=== PATIENT | female | born 1995 | race Caucasian/White ===

== ENCOUNTER 2018-04-05 14:46 | Outpatient (RCR) | payer OTHER | END 2018-04-30 | LOC: M ST 14:46 | DX: J38.3 Other diseases of vocal cords (principal) | CPT/HCPCS: 92507 ==

== ENCOUNTER 2018-05-03 09:01 | Outpatient (RCR) | payer OTHER | END 2018-05-31 | LOC: M ST 05-10 07:30 | DX: J38.3 Other diseases of vocal cords (principal) | CPT/HCPCS: 92507 ==

== ENCOUNTER 2018-06-07 08:40 | Emergency (ER) | payer OTHER ==
[2018-06-07] MEDS: KETOROLAC 30 MG/ML VIAL (J1885) IV (09:42)
[2018-06-07 09:47] LABS: KETONE, URINE AUTO RFX NEGATIVE (NEGATIVE); NITRITE, URINE AUTO RFX NEGATIVE (NEGATIVE); RBC, URINE AUTO RFX 15 /HPF (0-3); SPECIFIC GRAVITY UR AUTO RFX 1.003 (1.002-1.035); SQUAM EPITHELIAL CELL UR AURFX 1 /HPF (0-6)
[2018-06-07 09:48] LABS: BASO % 0.3 % (0.0-1.0); EOS # 0.1 10^3/uL (0.0-0.50); EOS % 0.6 % (0.0-3.0); HEMATOCRIT 40.2 % (36.0-47.0); HEMOGLOBIN 13.7 g/dl (12.0-15.5); IMMATURE GRANULOCYTE % 0.4 % (0-3.0); LYMPH # 1.6 10^3/uL (1.5-6.5); LYMPH % 13.8 % (24.0-44.0); MEAN CORPUSCULAR HEMOGLOBIN 29.2 pg (27.0-33.0); MEAN CORPUSCULAR HGB CONC 34.1 g/dl (32.0-36.5); MEAN CORPUSCULAR VOLUME 85.7 fl (80.0-96.0); MONO # 0.7 10^3/uL (0.0-0.8); NEUTROPHILS % 78.9 % (36.0-66.0); PLATELET COUNT, AUTOMATED 253 10^3/uL (150-450); RED BLOOD COUNT 4.69 10^6/uL (4.00-5.40); RED CELL DISTRIBUTION WIDTH 12.4 % (11.5-14.5); WHITE BLOOD COUNT 11.4 10^3/uL (4.0-10.0)
[2018-06-07 10:12] LABS: ALBUMIN/GLOBULIN RATIO 1.25 (1.00-1.93); ALKALINE PHOSPHATASE 94 U/L (45-117); ALT/SGPT 28 U/L (12-78); ANION GAP 7 MEQ/L (8-16); AST/SGOT 20 U/L (7-37); BILIRUBIN,DIRECT < 0.1 MG/DL (0.0-0.2); BILIRUBIN,TOTAL 0.3 MG/DL (0.2-1.0); BLOOD UREA NITROGEN 7 MG/DL (7-18); CALCIUM LEVEL 9.5 MG/DL (8.5-10.1); CARBON DIOXIDE LEVEL 28 MEQ/L (21-32); CHLORIDE LEVEL 103 MEQ/L (98-107); CREATININE FOR GFR 0.64 MG/DL (0.55-1.30); GLOMERULAR FILTRATION RATE > 60.0 (>60); GLUCOSE, FASTING 89 MG/DL (70-100); SODIUM LEVEL 138 MEQ/L (136-145); TOTAL PROTEIN 7.2 GM/DL (6.4-8.2)
[2018-06-07 10:18] LABS: LEUKOCYTE ESTERASE UR AUTO RFX 3+ (NEGATIVE); WBC, URINE AUTO RFX 149 /HPF (0-3)
== END 2018-06-07 11:26 | disposition home or self-care (01) ==
LOC: M ED 08:40
DX: N39.0 Urinary tract infection, site not specified (principal)
CPT/HCPCS: J1885

== ENCOUNTER 2018-07-04 15:14 | Emergency (ER) | payer OTHER ==
[2018-07-04 15:38] LABS: KETONE, URINE AUTO RFX NEGATIVE (NEGATIVE); LEUKOCYTE ESTERASE UR AUTO RFX NEGATIVE (NEGATIVE); NITRITE, URINE AUTO RFX NEGATIVE (NEGATIVE); RBC, URINE AUTO RFX 0 /HPF (0-3); SPECIFIC GRAVITY UR AUTO RFX 1.004 (1.002-1.035); SQUAM EPITHELIAL CELL UR AURFX 1 /HPF (0-6); WBC, URINE AUTO RFX 1 /HPF (0-3)
== END 2018-07-04 16:10 | disposition left against medical advice (07) ==
LOC: M ED 15:14
DX: R10.2 Pelvic and perineal pain (principal); Z53.21 Procedure and treatment not carried out due to patient leaving prior to being seen by health care provider
CPT/HCPCS: 81001

== ENCOUNTER 2018-07-05 21:37 | Emergency (ER) | payer OTHER ==
[2018-07-05 22:07] LABS: KETONE, URINE AUTO RFX NEGATIVE (NEGATIVE); LEUKOCYTE ESTERASE UR AUTO RFX NEGATIVE (NEGATIVE); NITRITE, URINE AUTO RFX NEGATIVE (NEGATIVE); RBC, URINE AUTO RFX 0 /HPF (0-3); SPECIFIC GRAVITY UR AUTO RFX 1.014 (1.002-1.035); SQUAM EPITHELIAL CELL UR AURFX 3 /HPF (0-6); WBC, URINE AUTO RFX 0 /HPF (0-3)
[2018-07-05] MEDS: AZITHROMYCIN 250 MG TAB PO (22:46)
[2018-07-05] MEDS: cefTRIAXone SOD 250 MG VIAL (J0696) IM (22:46)
[2018-07-06 00:05] LABS: CHLAMYDIA DNA AMPLIFICATION NEGATIVE (NEGATIVE); GC DNA AMPLIFICATION NEGATIVE (NEGATIVE)
== END 2018-07-05 23:01 | disposition home or self-care (01) ==
LOC: M ED 21:37
DX: Z20.2 Contact with and (suspected) exposure to infections with a predominantly sexual mode of transmission (principal)
CPT/HCPCS: J0696

== ENCOUNTER 2018-07-14 10:03 | Outpatient (RCR) | payer OTHER ==
[~2018-07-14 10:03] MED LIST: BACT800T5 PO; KETO10TAB PO
== END 2018-07-31 ==
LOC: M ST 10:03
PROVIDERS: ATTEND Physician Assistant Medical
DX: J38.3 Other diseases of vocal cords (principal)
CPT/HCPCS: 92507; 92524; G9171; G9172

== ENCOUNTER 2018-08-22 16:51 | Emergency (ER) | payer OTHER ==
[~2018-08-22] VITALS: Ht 154.9 cm; Wt 72.3 kg
[2018-08-22 17:14] LABS: APPEARANCE, URINE CLEAR (CLEAR); BACTERIA, URINE AUTO NEGATIVE (NEGATIVE); BILIRUBIN, URINE AUTO NEGATIVE (NEGATIVE); BLOOD, URINE BLOOD 1+ (NEGATIVE); COLOR, URINE STRAW (YELLOW); GLUCOSE, URINE (UA) AUTO NEGATIVE (NEGATIVE); KETONE, URINE AUTO NEGATIVE (NEGATIVE); LEUKOCYTE ESTERASE, URINE AUTO NEGATIVE (NEGATIVE); NITRITE, URINE AUTO NEGATIVE (NEGATIVE); PROTEIN, URINE AUTO NEGATIVE (NEGATIVE); RBC, URINE AUTO 1 /HPF (0-3); SPECIFIC GRAVITY URINE AUTO 1.004 (1.002-1.035); SQUAMOUS EPITHELIAL CELL UR AU 1 /HPF (0-6); UROBILINOGEN, URINE AUTO 0.2 mg/dL (0.0-2.0); WBC, URINE AUTO 2 /HPF (0-3)
[2018-08-22] MEDS ORDERED: NS 1,000 ML IV ONE (20:15)
[2018-08-22 21:09] LABS: BASO # 0.1 10^3/uL (0.0-0.2); BASO % 0.3 % (0.0-1.0); EOS # 0.1 10^3/uL (0.0-0.50); EOS % 0.4 % (0.0-3.0); HEMATOCRIT 38.3 % (36.0-47.0); HEMOGLOBIN 13.1 g/dl (12.0-15.5); LYMPH # 3.7 10^3/uL (1.5-6.5); LYMPH % 25.6 % (24.0-44.0); MEAN CORPUSCULAR HEMOGLOBIN 29.7 pg (27.0-33.0); MEAN CORPUSCULAR HGB CONC 34.2 g/dl (32.0-36.5); MEAN CORPUSCULAR VOLUME 86.8 fl (80.0-96.0); MONO # 0.9 10^3/uL (0.0-0.8); MONO % 6.4 % (0.0-5.0); NEUTROPHILS # 9.6 10^3/uL (1.8-7.7); PLATELET COUNT, AUTOMATED 289 10^3/uL (150-450); RED BLOOD COUNT 4.41 10^6/uL (4.00-5.40); WHITE BLOOD COUNT 14.3 10^3/uL (4.0-10.0)
--- NOTE | 2018-08-22 21:57 | REPVR ---
EXAM: US First Trimester, Transabdominal EXAM DATE/TIME: 08/22/2018 9:16 PM CLINICAL HISTORY: 22 years old, female; Signs and symptoms; Lmp or gestational age (in weeks): 5w4d; Antepartum complications; Bleeding; ; Additional info: Vaginal bleeding TECHNIQUE: Real-time transabdominal obstetrical ultrasound of the maternal pelvis and a first trimester , less than 14 weeks 0 days, with image documentation. COMPARISON: No relevant prior studies available. FINDINGS: GESTATION: Gestation: Intrauterine gestational sac with a yolk sac. No pole is seen at this time. BIOMETRY: Estimated gestational age: 5 weeks 4 days by sac size Mean sac diameter: Mean sac size is 8 mm suggesting an age of 5 weeks 4 days. The EDC is 04/20/2019. MATERNAL: Uterus: The uterus measures 7.8 cm in its cephalocaudad dimension and 3.9 x 4.4 cm in its AP and lateral dimensions transabdominal. The uterus measures 9.6 cm in its cephalocaudad dimension and 4.2 x 5.4 cm in its AP and lateral dimensions transvaginal. Cervix: Unremarkable. Right adnexa: The right ovary measures 3.1 x 2.2 x 1.9 cm and demonstrates blood flow. Left adnexa: The left ovary measures 2.1 x 3.5 x 2.1 cm and demonstrates blood flow. Intraperitoneal: No intraperitoneal free fluid. IMPRESSION: 1. Early gestational sac within the uterus with yolk sac but no pole at this time. Sac size suggests an age of 5 weeks 4 days. 2. Otherwise negative pelvic sonogram. Electronically signed by: Grabiel Hoff On 08/22/2018 21:56:34 PM
[2018-08-22 22:33] VITALS: BP 128/77
== END 2018-08-22 22:34 | disposition home or self-care (01) ==
LOC: M ED 16:51
DX: O26.851 Spotting complicating pregnancy, first trimester (principal); O26.891 Other specified pregnancy related conditions, first trimester; M54.5 Low back pain; Z3A.01 Less than 8 weeks gestation of pregnancy

== ENCOUNTER 2018-08-23 14:13 | Outpatient (RCR) | payer OTHER | END 2018-08-31 | LOC: M ST 14:13 | PROVIDERS: ATTEND Physician Assistant Medical | DX: J38.3 Other diseases of vocal cords (principal) ==

== ENCOUNTER → 2018-08-25 | Outpatient (CLI) | payer OTHER ==
--- NOTE | 2018-08-25 07:53 | REP ---
Clinical: Dating and viability. Technique: Transabdominal and transvaginal first trimester obstetrical ultrasound with color Doppler evaluation. Findings: Single live early intrauterine is appreciated. Gestational sac with yolk sac and pole identified. Piedra-rump length of 2 mm corresponds to 5 weeks 5 days gestational age with estimated date of delivery 04/22/2019 . heart rate equals 80 beats per minute. No gross abnormalities are identified. Maternal ovaries are normal in appearance without torsion and a hemorrhagic left ovarian cyst likely represents corpus luteum. Right ovary measures 2.5 x 2.4 x 2.4 cm; RI 0.60. Left ovary measures 3.0 x 2.6 x 2.2 cm; RI 0.49. Impression: Single live early intrauterine at 5 weeks 5 days gestational age. heart rate is bradycardic and may warrant followup to ensure viability. Complete anatomical assessment should be performed and 19-20 weeks. Electronically Signed by Balbir Auguste MD 08/25/2018 07:46 A
== END ==
LOC: M RAD 07:01
PROVIDERS: ATTEND Obstetrics & Gynecology
DX: Z36.89 Encounter for other specified antenatal screening (principal); Z3A.01 Less than 8 weeks gestation of pregnancy

== ENCOUNTER → 2018-08-29 | Outpatient (CLI) | payer OTHER ==
--- NOTE | 2018-08-29 11:46 | REP ---
FIRST TRIMESTER ULTRASOUND: Real-time sonographic evaluation of the gravid uterus performed utilizing transabdominal and endovaginal technique. There is a single living intrauterine gestation. The gestational age is 6 weeks 1 day based on the crown-rump length of 5 mm, EDC 04/23/2019. The heart rate is 124 beats per minute. There is no subchorionic hemorrhage. Complex left ovarian cystic structure probably represents hemorrhagic corpus luteum. This measured about 2.2 cm in maximum diameter. There is no evidence of ovarian torsion bilaterally with duplex Doppler evaluation. Electronically Signed by Dipesh Stringer MD 08/29/2018 12:45 P
== END ==
LOC: M RAD 10:48
PROVIDERS: ATTEND Obstetrics & Gynecology
DX: Z36.89 Encounter for other specified antenatal screening (principal); Z3A.01 Less than 8 weeks gestation of pregnancy

== ENCOUNTER 2019-04-30 10:43 | Inpatient (IN) | payer OTHER ==
[~2019-04-30] VITALS: Ht 154.9 cm; Wt 98.3 kg
[2019-04-30] VITALS (9 sets, daily range): BP systolic 120–178; BP diastolic 77–97
[2019-04-30] MEDS ORDERED: LACTATED RINGER'S 1000 ML IV STA (10:58)
--- NOTE | 2019-04-30 11:35 | HPEPDOC ---
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 She was seen in clinic for NST and was noted to have initially minimal variability (likely sleep cycle), but resolved. However, BPs in clinic were mild range x2 (134/91, 136/96), which are new for her. She denies headache, vision changes, RUQ pain, regular contractions, vaginal bleeding, or LOF. Reports movement. 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: Herpes simplex virus(HSV) (Reports h/o Lab - Never had Outbreak - positive Serology), History of STD (2018 - Chlamydia) Past Medical History Medical History Obesity Surgical History: Denies/None Family History Significant Family History: No pertinent family hx Social History Marital Status: Family situation: Spouse/partner home Psychosocial History: No pertinent psych hx * Smoker: non-smoker Alcohol: Denies Drugs: denies Imunizations Tdap status: current Influenza Status: needs Allergies Coded Allergies: No Known Allergies (Unverified , 06/07/18) Medications Scheduled Valacyclovir HCl (Valtrex) 500 Mg Tablet, 1 TAB PO DAILY Physical Examination Physical Examination GENERAL: Alert and oriented times three. BREAST: . ABDOMEN: Gravid and non-tender to touch. FETUS: Is vertex (VTX) by Claudio confirmed on US. HEART RATE: Regular rate and rhythm. LUNGS: Clear to auscultation (CTA). EXTREMITIES: No edema. Biceps Deep tendon reflexes (DTRs) + [2/4] bilaterally. SSE: NEFG, no lesions, vaginal bleeding or abnormal discharge, cervix appears ~1cm dilated TAUS: Cephalic, Anterior Placenta - no Previa, + Cardiac Activity, MARK 10.3cm Pelvis Adequate for Trial of Labor EFW 3700gm Laboratory Data 24H LABS Laboratory Tests 2 04/30/19 10:53: Serology Scanned Report Hepatitis B Testing Urine Culture: Other ([place]) Pertinent Laboratoy Data Blood Type: B+ RBC Antibody Screen: Negative HIV: Negative Hepatitis B: Negative Hepatitis C: Unknown Rapid Plasma Reagin: Nonreactive Rubella: Immune Varicella: Nonreactive Chlamydia/Gonorrhea: Negative Group B Streptococcus: Negative Quad Screen Test: Declined Cystic Fibrosis: Declined Glucose Tolerance Test: 104 Anatomy Ultrasound Ultrasound Date: December 04, 2018 Placenta Location: Anterior Normal Anatomy: Yes Placenta Previa: No Vaginal Examination Dilation: 1cm Effacement: 60% Station: -3 Cervical Consistency: Medium Cervical Position: Posterior Presentation: Cephalic presentation Position: Vertex (occiput) Assessment Heart Rate (FHR): 145 Variability: Moderate Accelerations: Positive Decelerations: None Tocometer Frequency: regular, other (8min) Duration: greater than 60 seconds Strength: palpated as mild Multi-drug resistant Organism: No history of MDRO Assessment/Plan Assessment Karine is a 23yp G1 at 41+0wks by 6wk US (BELTRAN [id number]) presents for IOL for PPD and new elevated mild range blood pressures. Cat I FHT. Plan Admit and orient. Stoner Hand and consent. Continuous Monitoring. VS and I&O per protocol. One Severe range BP that was not persistent. SSE without lesions. Diet: Clear. Group B Streptococcus (GBS) [negative]. Labs and intravenous (IV) per unit protocol. Pre Eclampsia Workup - continue to monitor, currently no severe features. Counseled on Pitocin and induction of labor (IOL). Lactated Ringers (LR): Bolus [1000] mL, then at [125] mL/hr. IOL Start with cytotec 50mcg buccally (<3 ctx in 10min). Laurie Scott DO. Labor and Delivery Counseling Counseled patient on IOL, Transfusions and risk of transfusions (reactions and blood borne infections), monitoring (external and internal), infection and need for antibiotics, obstetric lacerations, operative deliveries (foceps and vacuum) and indication for section. Patient verbalized understanding and all questions were answered to patient's apparent satisfaction. LAURIE SCOTT DO Apr 30, 2019 11:35
[2019-04-30] MEDS: LR 1,000 ML IV SCH ×2 (12:10→18:58)
[2019-04-30] MEDS ORDERED: VALT500T PO (12:22)
[2019-04-30 12:28] LABS: HEMATOCRIT 35.6 % (36.0-47.0); HEMOGLOBIN 11.5 g/dl (12.0-15.5); MEAN CORPUSCULAR HEMOGLOBIN 26.7 pg (27.0-33.0); MEAN CORPUSCULAR HGB CONC 32.3 g/dl (32.0-36.5); MEAN CORPUSCULAR VOLUME 82.6 fl (80.0-96.0); PLATELET COUNT, AUTOMATED 254 10^3/uL (150-450); RED BLOOD COUNT 4.31 10^6/uL (4.00-5.40); WHITE BLOOD COUNT 9.2 10^3/uL (4.0-10.0)
[2019-04-30 12:56] LABS: CREATININE,RANDOM URINE 15.6 MG/DL; TOTAL PROTEIN,RANDOM URINE < 5.0 MG/DL (0.0-12.0)
[2019-04-30 12:57] LABS: ALT/SGPT 19 U/L (12-78); BILIRUBIN,TOTAL 0.3 MG/DL (0.2-1.0); CREATININE FOR GFR 0.68 MG/DL (0.55-1.30); GLOMERULAR FILTRATION RATE > 60.0 (>60); LDH LACTATE DEHYDROGENASE 150 U/L (84-246); URIC ACID 6.1 MG/DL (2.6-6.0)
[2019-04-30] MEDS ORDERED: miSOPROStol 50 MCG 1/2 TAB (S0191) PO ONE (13:15)
--- NOTE | 2019-04-30 17:51 | IPNPDOC ---
Text Note Date of Service The patient was seen on 04/30/19. NOTE Went to recheck 4 hours after cytotec 50mcg buccally at 1330. She is doing well, occasional abd tightening. VS: Reviewed, episodic mild range blood pressures GEN: WNWD, NAD ABD: Soft, Gravid, NT EXT: no edema 1740 DCE 2/80/-2 FB (40ml) placed - Intact FHR: 140bpm, min-moderate variability, + accelerations, - deceleratons TOCO: 2-5/min A/P: SIUP at 41wks, IOL for PPD, meeting criteria now for GHTN, no e/o pre eclampsia or severe features, Cat I currently, episodes of Minimal Variability most likely due to sleep cycles - overall reassuring. - Continue to monitor - Continue VS monitoring per protocol - Diet: Clear - Group B Streptococcus (GBS) [negative] - FB placed, Pitocin start when FB delivers - Recheck 4 to 6 hours after Pitocin started, or sooner if indicated Laurie Scott DO VS,Angelbonmandeep, I+O VS, Fishbone, I+O Laboratory Tests 04/30/19 12:11 Red Blood Count 4.31, Mean Corpuscular Volume 82.6, Mean Corpuscular Hemoglobin 26.7 L, Mean Corpuscular Hemoglobin Concent 32.3, Red Cell Distribution Width 17.3 H, Aspartate Amino Transf (AST/SGOT) 24, Alanine Aminotransferase (ALT/SGPT) 19, Lactate Dehydrogenase 150, Total Bilirubin 0.3, Uric Acid 6.1 H Vital Signs Date Time Temp Pulse Resp B/P (MAP) Pulse Ox O2 Delivery O2 Flow Rate FiO2 04/30/19 15:41 98.7 82 16 120/79 (93) LAURIE SCOTT DO Apr 30, 2019 17:50
[2019-05-01] VITALS (56 sets, daily range): BP systolic 106–179; BP diastolic 56–103
[2019-05-01] MEDS ORDERED: OXYTOCIN DRIP 30 UNITS in IV 1 EA IV SCH (01:15)
[2019-05-01] MEDS: LR 1,000 ML IV SCH ×2 (09:15→15:32)
--- NOTE | 2019-05-01 09:32 | IPN ---
DATE OF SERVICE: 05/01/2019 This is an interim note after takeover from Dr. Charles. This girl is a 23-year-old 1, para 0 at 41 and 1 weeks' gestation, was presented for induction of labor. Also had some new developed elevated mild range blood pressures. She was initially seen in the clinic and found to have minimal variability like sleep cycles which resolved. Midrange blood pressures were 134/91, 136/96. No headache or vision changes or right upper quadrant pain, loss of fluid, and there is movements. To date, she has had four lots of Cytotec Weber bulb and Pitocin. On evaluation presently, she has Pitocin running at 10 milliunits per minute. She has mild contractions. Again, there is reduced variability as the baby has a sleep pattern. Her vital signs indicate her blood pressure is 130/83, respirations are not recorded, temperature is 98.7, and, as mentioned, blood pressure presently 124/77, and pulse rate is 83. On pelvic examination, she is very posterior, thick, high, a -3 station, not well applied to the cervix, and just has a little bulge of membranes, and artificial rupture of membranes (ARM) was done with great difficulty, and minimal amount of clear fluid was noted. Her chemistry shows her uric acid is 6.1. Her GFR is normal. All the rest of the examinations are normal. Her urine is 0.31. Her hemoglobin 11.5, hematocrit 35.6, and platelets are 254. White count was normal at 9.2. Our plan of management is to increase Pitocin when required or request an epidural. We will reevaluate her in 2-3 hours. Our main concern is the category 2 strip with intermittent areas of reduced variability, the fact that the cervix is unchanged in 24 hours despite Cytotec and Pitocin and a Weber bulb.
[2019-05-01] MEDS ORDERED: FENTANYL 2MCG/ML ROPIVACAINE 0.2% IN 0.9% NACL 100ML IVBAG As Ordered ONE (10:01)
[2019-05-01] MEDS: FENTANYL/ROPIVACAINE/NACL BAG 100 ML EPIDURAL SCH ×2 (10:19→20:03)
[2019-05-01] MEDS ORDERED: ePHEDrine SULFATE 25 MG/5 ML(5MG/ML) SYRINGE IV PRN (11:45)
[2019-05-01] MEDS ORDERED: ONDANSETRON 4MG/2ML VIAL (J2405) IV PRN ×3 (11:45→22:14)
[2019-05-01] MEDS ORDERED: EPIDURAL COMMENT XX SCH (11:45)
[2019-05-01] MEDS ORDERED: EPIDURAL/PCA KEYS XX PRN (11:45)
[2019-05-01] MEDS ORDERED: diphenhydrAMINE INJ 50MG/ML VIAL (J1200) IV PRN ×2 (11:45→22:14)
[2019-05-01] MEDS ORDERED: NALOXONE INJ 0.4 MG/1 ML VIAL (J2310) IV PRN ×3 (11:45→22:14)
[2019-05-01] MEDS ORDERED: REFRIGERATOR IV KEYS XX PRN (11:45)
[2019-05-01] MEDS ORDERED: LACTATED RINGER'S 1000 ML IV PRN (11:45)
--- NOTE | 2019-05-01 16:12 | IPN ---
DATE: 05/01/2019 This lady was admitted for induction of labor. She is at 41 and 1 weeks of gestation. She had elevated midrange blood pressures and she had minimal variability on admission. She eventually with Weber bulb began having adequate contractions with Pitocin. We reevaluated after the Weber bulb fell out and she is basically 2 cm posterior. Very little fluid on an artifical rupture of membranes (AROM). However, we allowed her to continue and intermittently between 61 milliunits and 10 milliunits the baby's reactivity picked up and she had a category 1 strip. At the present time, she has 6 milliunits and a category 1 strip, and baby seems to be tolerating the contractions well. Vital signs show her blood pressure is 125/55, respirations are 16, pulse of 86. She has had no evidence of midrange blood pressures. On pelvic examination, she is about 4-5 cm with moderate amount of molding at -3 station. Cervix is soft, anterior at the present time, and she has made some change. We expressed to the patient and her mother that we are judiciously using Pitocin because the baby does not tolerate contractions that well and we will reevaluate her at 5 p.m. Presently safe to proceed and she is making some slow progress. Category 1 strip.
--- NOTE | 2019-05-01 17:58 | IPN ---
DATE: 05/01/2019 Reassessing Conor, 1600 hours, 05/01/2019. Nurse called regarding a prolonged late deceleration on 6 to 8 milliunits of Pitocin. The patient was changed from one side to another, given some oxygen, discontinued the Pitocin and IV fluids were given as a bolus. Baby then had another reassuring strip after that, continued on for 20-30 minutes in order to assess whether there were going to be any further decelerations. With no further decelerations, the Pitocin was started once more, contractions had spaced out. Presently on 4 milliunits of Pitocin. There are some variables noted. There are periods of reduced variability, then there are periods of moderate variability. Assessment of the cervix was anterior, 4 to 5, well applied, -3 which is a change from previously. Presently safe to continue. We will reassess her in several hours' time.
--- NOTE | 2019-05-01 19:36 | IPN ---
DATE: 05/01/2019 This lady was admitted for induction of labor at 41 and 1 weeks of gestation. She has had Weber bulb induction of labor, Pitocin. She had some intermittent variables, and she had one late deceleration. However, after mobilizing her, IV hydrating her and changing position, baby seemed to transition to a category one strip. Pitocin is presently running at 6 milliunits per minute. She has adequate IV hydration, adequate pain management. We have reevaluated her cervix 5 hours after the initial episode, and there has been no change in her cervix. There is a lot of caput molding, still 4 cm, anterior cervix, category one strip. We have given her until another 2 hours to see if there is any change in her cervix. Should there be no change with category one strip, and we are now 8 hours into failure to descend and failure to dilate, we will then go ahead and counselor aid her regarding section as the best option for delivery of this infant. Presently her blood pressure is 121/70, respirations 16, pulse 78, temperature is not available. Urine output is adequate.
[2019-05-01] MEDS ORDERED: ceFAZolin SOD 2 GM in IV 1 EA IV ONE (21:00)
[2019-05-01] MEDS ORDERED: OXYTOCIN INJ 10 UNITS/ML VIAL (J2590) As Ordered ONE (21:00)
[2019-05-01] MEDS ORDERED: ACETAMINOPHEN 650 MG SUPP PR ONE (21:00)
[2019-05-01] MEDS ORDERED: BUPIVACAINE HCL 0.25% 10 ML VIAL SC ONE (21:00)
[2019-05-01] MEDS ORDERED: BICITRA 30ML SOLN UDC PO ONE (21:00)
[2019-05-01] MEDS ORDERED: LIDOCAINE 2% W/EPIN INJ 20ML **PRES FREE As Ordered ONE (21:05)
[2019-05-01] MEDS ORDERED: PHENYLephrine HCL 500 MCG/5 ML (100MCG/ML) SYRINGE (J2370) As Ordered ONE (21:25)
--- NOTE | 2019-05-01 21:26 | IPN ---
DATE: 05/01/2019 This lady was admitted at 41 and 1 weeks' of gestation because of a nonreassuring category two strip, post dates gestation, and she had been given adequate time for induction of labor for progress. She had a Weber bulb. She had Pitocin. She never got beyond 4 cm, thick, molded and despite the use of Pitocin judiciously, we were never able to increase beyond 10 milliunits because of the nonreassuring heart tones. She sat at 4 cm, failure to descend to dilate for 6 hours. With IV hydration, position change and oxygen, we got intermittent category one strips but resumed the category two. She had one late deceleration, but that was with movement on the part of the patient, otherwise she had a intermittent category two strip. We discussed the risks and benefits of section including hemorrhage, infection, perforation of organs, , reoperation, remote possibility of blood transfusion, remote possibility of hysterectomy, remote possibility of laceration and admission to the intensive care unit (NICU). After expressed understanding of all the same, the patient signed the consent form. We consulted anesthesia, neonatology, and the patient was given IV antibiotics appropriately 1 hour preop. Sequentials in place, Weber catheter in place and acetaminophen 1300 mg suppository prior to section.
[2019-05-01] MEDS ORDERED: ePHEDrine SULFATE 25 MG/5 ML(5MG/ML) SYRINGE As Ordered ONE (21:36)
[2019-05-01] MEDS ORDERED: ONDANSETRON 4MG/2ML VIAL (J2405) As Ordered ONE (21:37)
[2019-05-01] MEDS ORDERED: KETOROLAC 60 MG/2 ML VIAL (J1885) As Ordered ONE (21:37)
[2019-05-01] MEDS ORDERED: MORPHINE PRES-FREE INJ 10 MG/10 ML VIAL (J2274) As Ordered ONE (21:38)
[2019-05-01] MEDS ORDERED: HYDROMORPHONE HCL 0.5 MG/ 0.5 ML SYRINGE (J1170 PER 1) IV PRN (21:45)
[2019-05-01] MEDS ORDERED: fentaNYL 100 MCG/2 ML INJECTION (J3010) IV PRN (21:45)
[2019-05-01] MEDS ORDERED: PERCOCET 5MG/325MG TAB PO PRN ×2 (21:45→22:45)
[2019-05-01] MEDS ORDERED: MEPERIDINE INJ 25 MG/ML VIAL (J2175) IV PRN (21:45)
[2019-05-01] MEDS ORDERED: NALBUPHINE HCL 10 MG/ML AMP (J2300) IV PRN ×2 (21:45→22:14)
[2019-05-01 21:52] LABS: CORD GAS ABE A -4.4; CORD GAS ABE V -2.9; CORD GAS HCO3 A 23.2 MEQ/L; CORD GAS HCO3 V 22.4 MEQ/L; CORD GAS O2 SAT A 33.3 %; CORD GAS PCO2 A 51.9 mmHg; CORD GAS PCO2 V 40.9 mmHg; CORD GAS PH A 7.268 UNITS; CORD GAS PH V 7.356 UNITS; CORD GAS PO2 A 18.9 mmHg; CORD GAS PO2 V 28.5 mmHg; CORD GAS SBC A 19.3 MEQ/L; CORD GAS SBC V 21.2 MEQ/L; CORD GAS TCO2 A 24.8 MEQ/L; CORD GAS TCO2 V 23.6 MEQ/L
[2019-05-01] MEDS ORDERED: METOCLOPRAMIDE INJ 10MG/2ML VIAL (J2765) IV PRN (22:14)
[2019-05-01] MEDS ORDERED: ANUSOL HC CREAM 30GM TOP PRN (22:45)
[2019-05-01] MEDS ORDERED: MOM 30ML SUSPENSION UDC PO PRN (22:45)
[2019-05-01] MEDS ORDERED: DOCUSATE SODIUM 100 MG CAP PO PRN (22:45)
[2019-05-01] MEDS ORDERED: ACETAMINOPHEN 500 MG TAB PO PRN (22:45)
[2019-05-01] MEDS ORDERED: OXYTOCIN INJ 10 UNITS/ML VIAL (J2590) IV ONE (22:45)
[2019-05-01] MEDS ORDERED: MEASLES,MUMPS,RUBELLA VACCINE INJ (MMR-II) (90707) SC SCH (22:45)
[2019-05-01] MEDS ORDERED: RHOGAM 300 MCG (1500 IU) INJ (J2790) IM SCH (22:45)
[2019-05-01] MEDS: OXYTOCIN DRIP 30 UNITS in IV 1 EA IV SCH (22:50)
[2019-05-01] MEDS ORDERED: OXYTOCIN 30 UNITS IN 0.9% NaCl 500ML IV BAG (J2590) As Ordered ONE (22:54)
--- NOTE | 2019-05-01 23:10 | RO ---
DATE OF PROCEDURE: 05/01/2019 This lady is a 23-year-old 1 who was admitted for induction of labor at 41 and 1 weeks of gestation with nonreassuring heart tones. She had a primary section for failure to descend, failure to dilate, and nonreassuring heart strip, delivered a live male , 7 pounds 7 ounces, 3360 grams, scores of 6 and 9 at one and five minutes respectfully. Cord was around the neck times one tight. Arterial pH 7.26, base excess -4.4, venous pH 7.35, base excess -2.9. PREOPERATIVE DIAGNOSIS: NRFHT FAILURE TO DESCEND FAILURE TO DILATE POSTOPERATIVE DIAGNOSIS: SAME OPERATION PROPOSED: Primary section. OPERATION PERFORMED: Primary section. SURGEON: Dr. Chava Osman SET UP OPERATOR TOOL: Dr. Robinson Williamson ANESTHESIA: Epidural plus local anesthetic for intraperitoneal procedures. ESTIMATED BLOOD LOSS: 400 mL. DESCRIPTION OF PROCEDURE: After adequate time-out, prepped and draped in the supine position, Weber catheter in the bladder draining clear urine. Acetaminophen suppository 1300 mg per rectum. Sequentials in place. Antibiotics appropriately 1 hour preop. A Pfannenstiel incision was made two fingerbreadths above the symphysis pubis, passing through abdominal layers securing hemostasis. Opening peritoneal cavity, we noticed the head was quite high. Mobius was placed in place. Low transverse incision was made into the uterus. We delivered a live male infant weighing 7 pounds 7 ounces, 3360 grams, scores of 6 and 9 at one and five minutes respectfully. There was meconium after the baby was delivered. The placenta was manually removed, three vessels in the cord, membranes and tissues intact, were quite calcified. The uterus contracted well under Pitocin. We swept the uterine cavity. No evidence of tissue or membranes. The uterus after being contracted well under Pitocin was oversewn in the usual fashion in two layers, imbricating the second layer. Reperitonealization was performed, with instrument and pad count correct. Both ovaries and tubes appeared to be normal. The Mobius was removed. The peritoneum was closed with interrupted lock stitch to the fascia with a continuous suture. Irrigation of the subcutaneous fat. Intermittent stitches to close the space in the fat and then subcuticular stitches with #4-0 Vicryl. Marcaine 0.25% 10 mL to the incisional site, spray and Telfa, and the patient was taken back to recovery in good condition. EMERY
--- NOTE | 2019-05-01 23:11 | IPN ---
DATE: 05/01/2019 This patient has requested circumcision of male . After discussing risks and benefits of circumcision, the medical and nonmedical indications, the penile block and aftercare, expressed understanding of penile block and aftercare and bleeding, signed the consent form. All questions were answered. 20-minute discussion. We await the clearance by the paint tinter.
[2019-05-02] VITALS (10 sets, daily range): BP systolic 103–137; BP diastolic 54–85
[2019-05-02] MEDS ORDERED: PERCOCET 5MG/325MG TAB As Ordered ONE (00:25)
[2019-05-02] MEDS: PERCOCET 5MG/325MG TAB PO PRN ×2 (00:50→22:47)
[2019-05-02] MEDS ORDERED: PROMETHAZINE INJ 25 MG/ML VIAL (J2550) IV ONE (02:00)
[2019-05-02] MEDS: OXYTOCIN DRIP 30 UNITS in IV 1 EA IV SCH (02:33)
[2019-05-02] MEDS: LR 1,000 ML IV SCH ×2 (03:35→10:58)
[2019-05-02] MEDS: KETOROLAC 30 MG/ML VIAL (J1885) IV SCH ×3 (04:51→16:58)
[2019-05-02 07:13] LABS: HEMATOCRIT 28.4 % (36.0-47.0); MEAN CORPUSCULAR HEMOGLOBIN 26.8 pg (27.0-33.0); MEAN CORPUSCULAR VOLUME 83.8 fl (80.0-96.0); PLATELET COUNT, AUTOMATED 202 10^3/uL (150-450); RED BLOOD COUNT 3.39 10^6/uL (4.00-5.40); WHITE BLOOD COUNT 10.8 10^3/uL (4.0-10.0)
[2019-05-02 07:21] LABS: HEMOGLOBIN 9.1 g/dl (12.0-15.5)
--- NOTE | 2019-05-02 08:13 | IPN ---
DATE: 05/02/2019 23-year-old, 1, now para 1 was admitted at 41 and 1 weeks of gestation for induction of labor because of nonreassuring heart tones. She had a primary section of a male 7 pounds 7 ounces (3360 grams), of 6 and 9 at one and five respectfully. Cord was around the neck times one tight. Arterial pH 7.26, base excess -4.4, venous pH 7.35, base excess -2.9. On her for the first postop day, we discussed phlebitis, cystitis, mastitis, endometritis, cellulitis, diet, exercise, pain management, perineal breast and wound care. Presently, her hemoglobin pending pre delivery was 11.5, hematocrit 35.6 and platelets were 254. Her vital signs this morning her blood pressure is 103/54, respirations are 18, pulse is 89, temperature 98.6. She has very concentrated urine, is not drinking enough fluids. We will increase her fluid load. Abdomen is soft. Four quadrant bowel sounds are noted. Incision is clean and dry. She has sequentials on, is planning on having her Weber removed this morning and shower. The rest examination unremarkable. Normocephalic, atraumatic. Neck full range of motion. Pupils equal and reactive to light. Distal pulses are symmetric. No evidence of deep venous thrombosis (DVT), pulmonary embolism (PE) or superficial phlebitis. Chest is clear bilaterally to bases. No wheezes or rhonchi. She has not complained of cough, wheeze, shortness of breath or dyspnea on exertion. In summary, we have a late term gestation delivered by primary section doing well. Plan for discharge tomorrow.
[2019-05-02] MEDS: PRENATAL VITAMINS CHEWABLE TABLET PO SCH (09:00)
[2019-05-02] MEDS ORDERED: LACTATED RINGER'S 1000 ML IV ONE (10:30)
[2019-05-02] MEDS ORDERED: INFLUENZA QUADRIVALENT PF VACCINE 0.5ML SYRINGE (90686) IM ONE (13:00)
[2019-05-03] MEDS ORDERED: IBUPROFEN 800 MG TAB PO PRN
[2019-05-03] MEDS ORDERED: IBUPROFEN 600 MG TAB PO PRN
[2019-05-03 02:06] VITALS: BP 115/64
[2019-05-03 06:52] VITALS: BP 113/70
[2019-05-03] MEDS ORDERED: COLA100C5 PO (08:00)
[2019-05-03] MEDS ORDERED: IBUP80TA PO (08:00)
[2019-05-03] MEDS ORDERED: PERCOCET PO ×2 (08:00→11:50)
[2019-05-03] MEDS: PERCOCET 5MG/325MG TAB PO PRN (08:08)
[2019-05-03] MEDS: PRENATAL VITAMINS CHEWABLE TABLET PO SCH (08:08)
--- NOTE | 2019-05-03 08:11 | OBDS ---
[facility] Obstetrical Discharge Sum. Obstetrical Discharge Summary Date: May 03, 2019 : 1 Term: 1 Pre-term: 0 Abortions: 0 Livin VDRL: Non-Reactive (`) Rh: Positive Rubella: Immune Sex: Male Weight: pounds (7), ounces (7) A/P, Post Course List any complications Admission diagnosis: IOL Discharge diagnosis: PLTCS, single live Condition at Discharge: good Discharge Instructions: [Home] Activity: [as tolerated, pelvic rest, no driving for at least 2 weeks and no longer taking percocet, no heavy lifting >10lbs] Diet: [regular] Medications: [percocet, ibuprofen] Follow-up: [6 weeks for visit] 23-year-old, 1, now para 1 was admitted at 41 and 1 weeks of gestation for induction of labor because of nonreassuring heart tones. She had a primary section of a male 7 pounds 7 ounces (3360 grams). She remained stable and afebrile throughout her hospital stay. She met all criteria for discharge on /postoperative day 2. 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 DO May 03, 2019 08:11
[2019-05-03] MEDS ORDERED: INFLUENZA QUADRIVALENT PF VACCINE 0.5ML SYRINGE (90686) IM ONE (09:00)
[2019-05-03] MEDS ORDERED: PRENCHW PO (11:50)
[2019-05-03] MEDS ORDERED: PROC1CRE5 TOP (11:50)
[2019-05-03] MEDS ORDERED: ACET-683 PO (11:50)
--- NOTE | 2019-05-03 12:56 | DSES ---
DATE OF ADMISSION: 04/30/2019 DATE OF DISCHARGE: This lady is a 23-year-old 1 who was admitted at 41 and 1 weeks' of gestation for induction of labor because of a nonreassuring heart strip. She delivered by primary section a live male 7 pounds 7 ounces, 3360 grams, scores six and nine at 1and 5 minutes, respectively. Cord was tight around the neck times one. Arterial pH 7.26, base excess -4.4, venous pH 7.35, base excess -2.9. Risk factors is that she was HSV positive, but no active outbreak, and STD positive in 2018 with test of cure negative. She was a late term and she had midrange blood pressures. On discharge her blood pressure was 113/70, respirations 18, pulse 95, temperature was 99.2. Her admitting hemoglobin 11.5, hematocrit 35.6 and platelets were 254. Her discharge hemoglobin was 9.1, hematocrit 28.4, and platelets were 202. We discussed phlebitis, cystitis, mastitis, endometritis and cellulitis, diet, exercise, pain management, perineal breast or wound care. The rest of the examination unremarkable. She is normocephalic, atraumatic. Neck full range of motion. Pupils equal and reactive to light. Distal pulses symmetric. No evidence of deep vein thrombosis (DVT), pulmonary embolism (PE), or superficial phlebitis. Chest is clear live bilaterally to bases. No wheezes or rhonchi. No CVA tenderness. Abdomen is soft, uterus 2 below. Lochia is moderate. Incision is clean and dry, four quadrant bowel sounds are noted. She is not complaining of any joint pain, arthralgia or myalgia. No visual disturbances. She is mobilizing well. is going well and she is planned for discharge today. The patient has been dispensed her medications. She has a two week incision check at [facility] and a six week check at which time control will be discussed. The patient was discharged improved.
== END 2019-05-03 14:30 | disposition home or self-care (01) | DRG 773 ==
LOC: M LDI 10:43 → M OBS 05-02 01:16
PROVIDERS: ADMIT Obstetrics & Gynecology; ATTEND Obstetrics & Gynecology
PROC: 3E0P7GC Introduction of Other Therapeutic Substance into Female Reproductive, Via Natural or Artificial Opening (ICD-10-PCS; 2019-04-30)
PROC: 10D00Z1 Extraction of Products of Conception, Low, Open Approach (ICD-10-PCS; principal; 2019-05-01 20:46)
DX: O76 Abnormality in fetal heart rate and rhythm complicating labor and delivery (principal); O13.4 Gestational [pregnancy-induced] hypertension without significant proteinuria, complicating childbirth; Z3A.41 41 weeks gestation of pregnancy; O48.0 Post-term pregnancy; Z37.0 Single live birth; O62.0 Primary inadequate contractions; O64.8XX0 Obstructed labor due to other malposition and malpresentation, not applicable or unspecified

== ENCOUNTER → 2021-03-06 | Outpatient (CLI) | payer OTHER ==
[~2021-03-06] MED LIST changes: +ACET-683 PO; +COLA100C5 PO; +IBUP80TA PO; +PERCOCET PO; +PRENCHW PO; +PROC1CRE5 TOP; +VALT500T PO
--- NOTE | 2021-03-06 14:55 | REP ---
INDICATION: PREG, F/U GROWTH/ANATOMY-SPINE,HEART. COMPARISON: None. TECHNIQUE: Multiple ultrasonographic images of the gravid uterus. FINDINGS: The transcribed report of an outside study from [address] [place] [address] dated 03/02/2021 was unable to optimally visualize the lumbosacral region of the spine and tip of the sacral spine on longitudinal images, and four-chamber heart and cardiac right and left ventricular outflow tracts. On the study today there is a single intrauterine gestation in a cephalic presentation. heart rate is 120 beats per minute. The placenta is anterior with grade 2 maturity. There is no placenta previa. The amniotic fluid index is 11.5) a 0.1-24.8). The cervix measures 3.3 cm length. The composite ultrasound gestational age on today's study is 33 weeks 6 days with an BELTRAN of 04/18/2021. Gestational age by LMP is 34 weeks 0 days with an BELTRAN of 04/17/2021. Estimated weight is 2268 g/5 lb, 0 oz. This is the 36th percentile for 34 weeks 0 days. The following anatomic structures are adequately demonstrated and are unremarkable: Facial profile, upper lip, lungs, cardiac rhythm, diaphragm, stomach, abdominal wall, right and left kidneys, bladder, and three-vessel cord. Suboptimally demonstrated because of position are the intracranial contents, four-chamber view of the heart, cardiac right left ventricular outflow tracts, and spine, particularly the lumbar arm lumbar spine and sacrum. Imaging is limited because of position and advanced gestational age. IMPRESSION: Viable 33 week 6 day intrauterine gestation. The intracranial contents, four-chamber view of the heart, cardiac right left ventricular outflow tracts and spine are suboptimally demonstrated because of position and gestational age. <Electronically signed by Dipesh Stevens > 03/06/21 [id number]
== END ==
LOC: M RAD 14:00
PROVIDERS: ATTEND Advanced Practice Midwife
DX: Z36.9 Encounter for antenatal screening, unspecified (principal); Z3A.33 33 weeks gestation of pregnancy

== ENCOUNTER 2021-03-19 13:38 | Inpatient (IN) | payer OTHER ==
[2021-03-19] VITALS (9 sets, daily range): BP systolic 98–131; BP diastolic 53–81
[~2021-03-19] VITALS: Ht 154.9 cm; Wt 92.3 kg
[2021-03-19] MEDS ORDERED: LR 1,000 ML IV ONE (13:45)
[2021-03-19] MEDS ORDERED: FIORICET TAB PO ONE (13:45)
[2021-03-19 14:15] LABS: HEMATOCRIT 33.9 % (36.0-47.0); HEMOGLOBIN 10.9 g/dl (12.0-15.5); MEAN CORPUSCULAR HEMOGLOBIN 26.8 pg (27.0-33.0); MEAN CORPUSCULAR HGB CONC 32.2 g/dl (32.0-36.5); MEAN CORPUSCULAR VOLUME 83.3 fl (80.0-96.0); PLATELET COUNT, AUTOMATED 212 10^3/uL (150-450); RED BLOOD COUNT 4.07 10^6/uL (4.00-5.40); WHITE BLOOD COUNT 9.4 10^3/uL (4.0-10.0)
[2021-03-19 14:44] LABS: ALT/SGPT 15 U/L (12-78); BILIRUBIN,TOTAL 0.3 MG/DL (0.2-1.0); CREATININE FOR GFR 0.61 MG/DL (0.55-1.30); GLOMERULAR FILTRATION RATE > 60.0 (>60); LDH LACTATE DEHYDROGENASE 133 U/L (84-246); URIC ACID 4.9 MG/DL (2.6-6.0)
[2021-03-19] MEDS ORDERED: FERR325T3 PO (14:54)
[2021-03-19 15:32] LABS: CREATININE,RANDOM URINE 21.9 MG/DL; TOTAL PROTEIN,RANDOM URINE 5.6 MG/DL (0.0-12.0)
[2021-03-19] MEDS ORDERED: PROMETHAZINE INJ 25 MG/ML VIAL (J2550) IV ONE (15:50)
[2021-03-19] MEDS ORDERED: FAMOTIDINE INJ 20MG/2ML VIAL (S0028 PER 1) IVP ONE (16:00)
[2021-03-19] MEDS ORDERED: MAG Sulf (L&D) 4 GM/100 ML 4 GM in IV 1 EA IV ONE (17:00)
[2021-03-19] MEDS ORDERED: CALCIUM GLUCONATE 1,000 MG in D5W MINI-BAG PLUS 100 ML IV PRN (17:00)
[2021-03-19] MEDS ORDERED: BETAMETHASONE SOLUSPAN 6MG/ML 5ML VIAL (J0702 PER 3MG) IM SCH (17:00)
[2021-03-19] MEDS ORDERED: OXYTOCIN DRIP 30 UNITS in IV 1 EA IV PRN (17:00)
[2021-03-19] MEDS ORDERED: BICITRA 30ML SOLN UDC PO ONE (17:05)
[2021-03-19] MEDS ORDERED: BUPIVACAINE HCL 0.25% 10ML VIAL SC SCH (17:05)
[2021-03-19] MEDS ORDERED: ceFAZolin SOD 2 GM in IV 1 EA IV ONE (17:05)
--- NOTE | 2021-03-19 17:06 | HPEPDOC ---
Obstetrical History & Physical General Date of Admission 19 MAR 2021 History of Present Illness 25 yo at 35w6d with BELTRAN of 17 APR 2021 presents to L&D with complaints of mild headache, RUQ pain, heartburn symptoms, and spotty vision for the last few days that have been unrelieved. After review of her [facility] medical record, it is notable that she has undiagnosed CHTN with many elevated BPs since 2018 including a mildly elevated BP noted early this . She reports that she was induced during her last for GHTN. She denies contractions, vaginal bleeding, leaking of fluid, and reports positive movement. Interval History: CHTN Hx of section HSV Varicella NI Hx of chlamydia Hx of pneumonia Hx of ASCUS, HPV negative Information Provided By: Patient Age: 25 : 2 Term: 1 Pre-term: 0 Abortions: 0 Livin Care Care: Good Care Dating Final EDC: Apr 17, 2021 Final EDC by: 1st trimester (US) EGA at Admission: 35.6 Antepartum Course Height (inches): 61 Pre- weight (lbs.): 145 Admission Weight (lbs.): 200 Change in Weight (lbs.): 55 Past Medical History Past Obstetrical History : Past Obstetrical History: Multigravida Date of Delivery: May 01, 2019 Gestation: 41.1 Type of Delivery: Ceserean section Weight of Infant (grams): 3360 Complications: Yes (HTN, CPD, ) 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 History: Abnormal Pap, Herpes simplex virus(HSV), History of STD Past Medical History Medical History CHTN, Hx of section, , HSV, Varicella NI, Hx of chlamydia, Hx of pneumonia, Hx of ASCUS, HPV negative Surgical History: section Family History Significant Family History: Cancer, Diabetes, Heart disease, Hypertension Social History Marital Status: Family situation: Spouse/partner home Psychosocial History: No pertinent psych hx * Smoker: non-smoker Alcohol: Denies Drugs: denies Abuse Violence Screening Have you been hit/kicked/slapp: No Have you been sexually assault: No Imunizations Tdap status: current Allergies Coded Allergies: No Known Allergies (Unverified , 06/07/18) Medications Scheduled Pnv No.118/Iron Fumarate/FA ( 19 Chewable Tablet) 1 Each Tab.chew, 1 TAB PO DAILY Miscellaneous Medications Ferrous Sulfate (Ferrous Sulfate) 325 Mg Tablet.dr, 325 MG PO Physical Examination Physical Examination GENERAL: Alert and oriented times three. BREAST: . ABDOMEN: Gravid and non-tender to touch. FETUS: Is vertex (VTX) by Claudio, vertex by sterile vaginal exam HEART RATE: Regular rate and rhythm. LUNGS: Clear to auscultation (CTA). EXTREMITIES: No edema. No clonus. Deep tendon reflexes (DTRs) Right + 2, Left +3, No clonus Vital Signs/I&O Vital Signs Date Time Temp Pulse Resp B/P (MAP) Pulse Ox O2 Delivery O2 Flow Rate FiO2 03/19/21 14:21 18 03/19/21 14:11 100 129/70 (89) 03/19/21 14:10 97.6 Cervical exam: Long, thick, closed, posterior, and high Laboratory Data 24H LABS Laboratory Tests 2 03/19/21 14:01: Nucleated Red Blood Cells % (auto) 0.0, Glomerular Filtration Rate > 60.0, Uric Acid 4.9, Total Bilirubin 0.3, Aspartate Amino Transf (AST/SGOT) 14, Alanine Aminotransferase (ALT/SGPT) 15, Lactate Dehydrogenase 133 03/19/21 14:58: Urine Random Creatinine 21.9, Urine Random Total Protein 5.6 CBC/BMP Laboratory Tests 03/19/21 14:01 Pertinent Laboratoy Data Blood Type: B+ RBC Antibody Screen: Negative HIV: Negative Hepatitis B: Negative Rapid Plasma Reagin: Nonreactive Rubella: Immune Varicella: Nonreactive Chlamydia/Gonorrhea: Negative Group B Streptococcus: Unknown Cystic Fibrosis: Negative Glucose Tolerance Test: 102 Vaginal Examination Presentation: Cephalic presentation Position: Vertex (occiput) Assessment Heart Rate (FHR): 145 Variability: Moderate Accelerations: Present Decelerations: None Tocometer Contractions: Yes Multi-drug resistant Organism: No history of MDRO Assessment/Plan Assessment IUP at 35w6d TN with superimposed pre-eclampsia with severe features HSV Varicella NI Plan Admit and orient. Clam Shucker and consent. Diet: NPO. Group B Streptococcus (GBS) unknown. Betamethasone Magnesium Sulfate IV Antihypertensives IV PRN Labs and intravenous (IV) per unit protocol. Pre-op medications to be administered per protocol Anticipate RLTCS Dr. Rocha was updated on patient status and was at the bedside with the patient Labor and Delivery Counseling Dr. Rocha discussed the risks of section, PPH, magnesium sulfate, TOLAC vs RLTCS, betamethasone, pre-eclampsia, and postoperative care. All questions were answered to patient's satisfaction and she verbalized understanding of all information and is without any further questions at this time. After the plan was discussed with the patient it was mutually agreed upon to proceed with RLTCS. LISANDRA BASILIO CNM Mar 19, 2021 15:49
[2021-03-19] MEDS ORDERED: ONDANSETRON 4MG/2ML VIAL As Ordered ONE ×4 (17:19→22:51)
[2021-03-19] MEDS ORDERED: OXYTOCIN INJ 10 UNITS/ML VIAL (J2590) As Ordered ONE ×2 (17:19→19:50)
[2021-03-19] MEDS ORDERED: fentaNYL 100 MCG/2 ML INJECTION (J3010) As Ordered ONE ×2 (17:19→21:50)
[2021-03-19] MEDS ORDERED: KETOROLAC 60MG 2ML VIAL As Ordered ONE ×2 (17:19→19:50)
[2021-03-19] MEDS ORDERED: dexameTHASONE 4 MG/ML 1ML VIAL (J1100 PER 1MG) As Ordered ONE ×2 (17:19→19:50)
[2021-03-19] MEDS ORDERED: MORPHINE PRES-FREE INJ 10 MG/10 ML VIAL (J2274) As Ordered ONE ×2 (17:20→19:49)
[2021-03-19] MEDS: MAG Sulf (OBGYN) 20GM/500ML 20,000 MG in IV 1 EA IV SCH (17:50)
[2021-03-19] MEDS ORDERED: OXYTOCIN 30 UNITS IN 0.9% NaCl 500ML IV BAG (J2590) As Ordered ONE (19:51)
[2021-03-19] MEDS ORDERED: ONDANSETRON 4MG/2ML VIAL IV PRN ×2 (20:54→23:15)
[2021-03-19] MEDS ORDERED: diphenhydrAMINE 50MG/ML VIAL (J1200) IV PRN (20:54)
[2021-03-19] MEDS ORDERED: METOCLOPRAMIDE INJ 10MG/2ML VIAL (J2765 PER 1) IV PRN (20:54)
[2021-03-19] MEDS ORDERED: NALBUPHINE HCL 10 MG/ML AMP (J2300) IV PRN ×2 (20:54→23:15)
[2021-03-19] MEDS ORDERED: NALOXONE INJ 0.4MG/1ML VIAL (J2310 PER 1MG) IV PRN ×2 (20:54)
--- NOTE | 2021-03-19 20:55 | ROOPDOC ---
[facility] Report Of Operation Report of Operation DATE OF PROCEDURE: 03/19/21 PREPROCEDURE DIAGNOSES: 35+6 weeks, pre-eclampsia with severe features POSTPROCEDURE DIAGNOSES: same + pelvic adhesive disease PROCEDURE: repeat delivery, lysis of pelvic adhesions SURGEON: Durga Yadav DO CHIEF SOLUTION ARCHITECT: Lucina Leonardo MD ANESTHESIA: epidural ESTIMATED BLOOD LOSS: Approximately 800mL. COMPLICATIONS: none REMARKS: none PROCEDURE NOTE: The risks, benefits, and alternatives of the procedure were discussed and written consent was obtained. The patient was taken to the OR where an epidural was placed. She was then positioned supine with a left tilt with her arms out. doptones were obtained. 2g of ancef was administered for antibiotic prophylaxis and bicitra for GI prophylaxis. SCDs were placed for DVT prophylaxis. A oconnor was placed in the bladder. The abdomen was prepped and draped in a sterile fashion. The anesthesia was tested to be adequate. A final time out was performed. A Pfannenstiel incision was made with a scalpel and carried to the fascia. The fascia was scored and extended in a curvilinear fashion with the curved ruiz scissors. The superior edge was elevated with micah clamps and the muscles dissected from the fascia with blunt dissection and a scalpel. The procedure was repeated on the inferior edge. Bleeding from adhesions on the right rectus belly was hemostatic with the aid of an 0-vicryl figure of eight. The muscles were and the peritoneum entered bluntly. An adhesion from the bladder to the anterior uterus lysed during dissection and the resulting bleeding was clamped. The adhesions from the bladder to the anterior uterus were dissected. The lower uterine segment was identified and a bladder flap was made with the metzambum scissors. The bladder blade was then placed. A transverse hysterotomy was made in the lower uterine segment and extended bluntly. The head was elevated to the level of the hysterotomy and with the aid of abdominal pressure the baby was delivered atraumatically. The baby had spontaneous movement, cry, and good tone. Warm dry stimulation was performed. The cord was then clamped and cut and the baby given to the pediatric team. Cord gasses and blood were obtained. The placenta was delivered via norman downward traction and was confirmed to be in-tact. The uterus was exteriorized and with a moist lap cleaned of debris. The hysterotomy was closed in a running locking fashion with 0-monocryl. A horizontal imbricating layer was also performed with 0-monocryl. Multiple figure of eight stitches were needed over the area of the lysed uterine adhesion to acquire hemostasis. The incision was hemostatic on completion. Rossy was applied to the incision. The posterior cul-de-sac was cleaned of clots with a moist lap and pool suction. The hysterotomy was re-inspected to be hemostatic and the uterus was replaced. T he gutters were cleansed with a moist lap and the hysterotomy remained hemostatic. The muscles were inspected to be hemostatic. The fascia was closed with 0-PDS in a running fashion and palpated to have no defects. The incision was irrigated and 0.25% marcaine 10cc injected at the level of the fascia. The sucutaneous layer was hemostatic with the aid of bovie cautery. 2-0 vicryl was used to close the subcutaneous tissue in a running fashion. The skin was closed with 3-0 monocryl and secured with steri strips and a pressure dressing. A uterine sweep was performed and bleeding was scant. The fundus was firm. The sponge, lap, and needle counts were correct x2 and there were no complications. The patient was transferred to recovery in stable condition. START 2120 BABY 2136 PLACENTA 2137 weight 2740g 8/9 DURGA YADAV DO Mar 19, 2021 20:55
[2021-03-19] MEDS ORDERED: BUPIVACAINE HCL 0.25% 10ML VIAL As Ordered ONE (21:21)
[2021-03-19 21:52] LABS: CORD GAS ABE A -0.7; CORD GAS HCO3 A 25.5 MEQ/L; CORD GAS O2 SAT A 45.5 %; CORD GAS PCO2 A 47.6 mmHg; CORD GAS PH A 7.346 UNITS; CORD GAS PO2 A 19.9 mmHg; CORD GAS SBC A 22.7 MEQ/L; CORD GAS TCO2 A 26.9 MEQ/L
[2021-03-19 21:54] LABS: CORD GAS ABE V -1.4; CORD GAS HCO3 V 23.2 MEQ/L; CORD GAS O2 SAT V 90.1 %; CORD GAS PCO2 V 38.9 mmHg; CORD GAS PH V 7.393 UNITS; CORD GAS PO2 V 47.6 mmHg; CORD GAS SBC V 23.1 MEQ/L; CORD GAS TCO2 V 24.4 MEQ/L
[2021-03-19] MEDS: ACETAMINOPHEN 500 MG TAB PO SCH (22:00)
[2021-03-19] MEDS ORDERED: fentaNYL 100 MCG/2 ML INJECTION (J3010) IV PRN (23:15)
[2021-03-19] MEDS ORDERED: oxyCODONE 5MG TAB PO PRN (23:15)
[2021-03-19] MEDS ORDERED: HYDROMORPHONE HCL 0.5 MG/ 0.5 ML SYRINGE (J1170 PER 1) IV PRN (23:15)
[2021-03-19] MEDS ORDERED: MEPERIDINE INJ 25 MG/ML VIAL (J2175) IV PRN (23:15)
[2021-03-19] MEDS ORDERED: LR 500 ML IV ONE (23:45)
[2021-03-20] VITALS (24 sets, daily range): BP systolic 91–126; BP diastolic 50–72
[2021-03-20] MEDS ORDERED: oxyCODONE 5MG TAB PO PRN ×3 (00:05→00:35)
[2021-03-20] MEDS ORDERED: SIMETHICONE 80MG CHEW TAB PO PRN (00:05)
[2021-03-20] MEDS ORDERED: ACETAMINOPHEN 500 MG TAB PO PRN (00:05)
[2021-03-20] MEDS ORDERED: ACETAMINOPHEN TAB 650MG DOSE (2X325MG) PO PRN (00:05)
[2021-03-20] MEDS ORDERED: DOCUSATE SODIUM 100MG CAPSULE PO PRN (00:05)
[2021-03-20 00:50] LABS: HEMATOCRIT 31.2 % (36.0-47.0); HEMOGLOBIN 10.1 g/dl (12.0-15.5); MEAN CORPUSCULAR HEMOGLOBIN 27.2 pg (27.0-33.0); MEAN CORPUSCULAR HGB CONC 32.4 g/dl (32.0-36.5); MEAN CORPUSCULAR VOLUME 83.9 fl (80.0-96.0); PLATELET COUNT, AUTOMATED 207 10^3/uL (150-450); RED BLOOD COUNT 3.72 10^6/uL (4.00-5.40); WHITE BLOOD COUNT 13.8 10^3/uL (4.0-10.0)
[2021-03-20 01:03] LABS: PARTIAL THROMBOPLASTIN TIME 25.9 SECONDS (25.9-37.0); PROTHROMBIN TIME 13.6 SECONDS (12.7-14.5)
[2021-03-20 01:19] LABS: ALBUMIN 2.3 GM/DL (3.2-5.2); ALT/SGPT 12 U/L (12-78); BILIRUBIN,TOTAL 0.2 MG/DL (0.2-1.0); BLOOD UREA NITROGEN 5 MG/DL (7-18); CARBON DIOXIDE LEVEL 24 MEQ/L (21-32); CHLORIDE LEVEL 107 MEQ/L (98-107); CREATININE FOR GFR 0.68 MG/DL (0.55-1.30); GLOMERULAR FILTRATION RATE > 60.0 (>60); GLUCOSE, FASTING 131 MG/DL (70-100); MAGNESIUM LEVEL 3.8 MG/DL (1.8-2.4); POTASSIUM SERUM 3.8 MEQ/L (3.5-5.1); SODIUM LEVEL 138 MEQ/L (136-145)
[2021-03-20] MEDS: LR 1,000 ML IV SCH ×2 (03:10→12:23)
[2021-03-20] MEDS: MAG Sulf (OBGYN) 20GM/500ML 20,000 MG in IV 1 EA IV SCH ×2 (04:08→14:14)
[2021-03-20] MEDS: ACETAMINOPHEN 500 MG TAB PO SCH ×3 (05:14→14:00)
[2021-03-20] MEDS: IBUPROFEN 800 MG TAB PO SCH ×3 (06:19→20:39)
--- NOTE | 2021-03-20 06:34 | IPNPDOC ---
Progress Note Date of Service: Mar 20, 2021 Day#: 1 Progress Note Ms. Perdomo os a 25yo POD1 s/p RCD at 35+6 for CHTN with PATRICA with SF based on headache and visual changes that were unable to be improved with medical management. She and her baby were also tachycardic prior to delivery, there were decelerations, and she had an isolated fever. She has been ambulating, voiding spontaneously without issue and tolerating regular diet. Breast feeding without issue. Reports lochia is less than a normal period]. Patient is ambulating well. [Reports some cramping with . Denies any pain. Passing flatus without difficulty]. Oconnor is in place. Denied n/v/d, cp, sob, pierce, visual changes, abd pain, f/c, vaginal dc, urinary sx. She reports she is slightly dizzy but this has been since her magnesium started. OBJECTIVE: VITAL SIGNS: Within normal limits, afebrile. Alert and oriented times three. Breath sounds clear to auscultation. Heart rate: Regular rate and rhythm, no murmurs, rubs or gallops. Abdomen: Fundus firm at U-2. Soft, NTTP. Pfannensteil incision is covered with pressure dressing without strikethrough. [Minimal] lochia. ASSESSMENT: Ms. Perdomo os a 25yo POD1 s/p RCD at 35+6 for CHTN with PATRICA with SF based on headache and visual changes that were unable to be improved with medical management. She and her baby were also tachycardic prior to delivery, there were decelerations, and she had an isolated fever. Her blood pressure had been low after delivery and she was evaluated for blood loss and she had a stable H/H and normal coags. She has remained normotensive and without tachycardia since delivery. Her and her baby have no signs of infection. Her headache and visual changes have resolved. PLAN: 1. Continue magnesium until 24h PP 2. IV antihypertensives as indicated. 3. seizure precautions 4. oconnor for I/O monitoring 5. VS and Mg checks per unit protocol 2. Tylenol and Motrin for pain. Oxycodne for breakthrough 3. Encourage breast feeding 4. contraception undecided 5. Routine PP visit in 72h, 7d, 2wk, and 6 weeks in clinic. 5. Educated on return precautions and activity limitations 6. Follow up on am tox labs VS[facility]O Vital Signs Date Time Temp Pulse Resp B/P (MAP) Pulse Ox O2 Delivery O2 Flow Rate FiO2 03/20/21 06:19 97.5 85 18 100/55 (70) 03/20/21 00:14 99 Room Air 03/19/21 23:47 2.0 I&O- Last 24 Hours up to 6 AM 03/20/21 06:00 Intake Total 1402.7 ml Output Total 3975 ml Balance -2572.3 ml Laboratory Data 24H LABS Laboratory Tests 2 03/19/21 14:01: Nucleated Red Blood Cells % (auto) 0.0, Glomerular Filtration Rate > 60.0, Uric Acid 4.9, Total Bilirubin 0.3, Aspartate Amino Transf (AST/SGOT) 14, Alanine Aminotransferase (ALT/SGPT) 15, Lactate Dehydrogenase 133, Syphilis Serology NONREACTIVE 03/19/21 14:58: Urine Random Creatinine 21.9, Urine Random Total Protein 5.6 03/19/21 18:27: Coronavirus (COVID-19)(PCR) NEGATIVE 03/19/21 21:27: Serology Scanned Report Hepatitis B Testing 03/19/21 21:43: Cord Arterial Blood pH 7.346, Cord Arterial Blood PCO2 47.6, Cord Arterial Blood PO2 19.9, Cord Arterial Blood HCO3 25.5, Cord Arterial Blood Total CO2 26.9, Cord Arterial Blood Base Excess -0.7, Cord Arterial Base Excess (Standard 22.7, Cord Arterial Bld Oxygen Saturation 45.5 03/19/21 21:44: Cord Venous Blood pH 7.393, Cord Venous Blood PCO2 38.9, Cord Venous Blood PO2 47.6, Cord Venous Blood HCO3 23.2, Cord Venous Blood Total CO2 24.4, Cord Venous Base Excess (Actual) -1.4, Cord Venous Base Excess (Standard) 23.1, Cord Venous Blood Oxygen Saturation 90.1 03/20/21 00:42: Nucleated Red Blood Cells % (auto) 0.0, Prothrombin Time 13.6, Prothromb Time International Ratio 1.00, Activated Partial Thromboplast Time 25.9, Anion Gap 7L, Glomerular Filtration Rate > 60.0, Calcium Level 7.0L, Magnesium Level 3.8H, Total Bilirubin 0.2, Aspartate Amino Transf (AST/SGOT) 19, Alanine Aminotra nsferase (ALT/SGPT) 12, Alkaline Phosphatase 102, Total Protein 6.0L, Albumin 2.3L, Albumin/Globulin Ratio 0.6L CBC/BMP Laboratory Tests 03/19/21 14:01 03/20/21 00:42 STEFAN YADAV DO Mar 20, 2021 06:34
[2021-03-20] MEDS ORDERED: PRENATAL VITAMINS CHEWABLE TABLET PO SCH (09:00)
[2021-03-20] MEDS ORDERED: FERROUS SULFATE 325MG TAB PO SCH (09:00)
[2021-03-20 10:32] LABS: HEMATOCRIT 28.7 % (36.0-47.0); HEMOGLOBIN 9.2 g/dl (12.0-15.5); MEAN CORPUSCULAR HGB CONC 32.1 g/dl (32.0-36.5); MEAN CORPUSCULAR VOLUME 84.2 fl (80.0-96.0); PLATELET COUNT, AUTOMATED 212 10^3/uL (150-450); RED BLOOD COUNT 3.41 10^6/uL (4.00-5.40); WHITE BLOOD COUNT 14.6 10^3/uL (4.0-10.0)
[2021-03-20 11:00] LABS: ALBUMIN 2.3 GM/DL (3.2-5.2); ALT/SGPT 12 U/L (12-78); BILIRUBIN,TOTAL 0.2 MG/DL (0.2-1.0); BLOOD UREA NITROGEN 5 MG/DL (7-18); CALCIUM LEVEL 7.1 MG/DL (8.5-10.1); CARBON DIOXIDE LEVEL 26 MEQ/L (21-32); CHLORIDE LEVEL 105 MEQ/L (98-107); CREATININE FOR GFR 0.63 MG/DL (0.55-1.30); GLOMERULAR FILTRATION RATE > 60.0 (>60); GLUCOSE, FASTING 96 MG/DL (70-100); POTASSIUM SERUM 4.2 MEQ/L (3.5-5.1); SODIUM LEVEL 137 MEQ/L (136-145); TOTAL PROTEIN 5.8 GM/DL (6.4-8.2)
[2021-03-21] VITALS (7 sets, daily range): BP systolic 107–121; BP diastolic 60–82
[2021-03-21] MEDS: ACETAMINOPHEN 500 MG TAB PO SCH ×3 (06:00→22:16)
[2021-03-21] MEDS: IBUPROFEN 800 MG TAB PO SCH ×3 (06:47→22:17)
[2021-03-21 07:36] LABS: HEMOGLOBIN 8.7 g/dl (12.0-15.5); MEAN CORPUSCULAR HEMOGLOBIN 26.9 pg (27.0-33.0); MEAN CORPUSCULAR HGB CONC 32.2 g/dl (32.0-36.5); MEAN CORPUSCULAR VOLUME 83.3 fl (80.0-96.0); PLATELET COUNT, AUTOMATED 208 10^3/uL (150-450); RED BLOOD COUNT 3.24 10^6/uL (4.00-5.40); WHITE BLOOD COUNT 10.9 10^3/uL (4.0-10.0)
--- NOTE | 2021-03-21 08:09 | IPNPDOC ---
Progress Note Date of Service: Mar 21, 2021 Progress Note Ms. Perdomo os a 25yo POD2 s/p RCD at 35+6 for CHTN with PATRICA with SF s/p 24hrs of magnesium that was discontinued on 03/20 at approximately 2200. She has been ambulating, voiding spontaneously without issue and tolerating regular diet. Breast feeding without issue. Reports lochia is less than a normal period. Baby is in NNICU on supplemental O2, but overall doing well. OBJECTIVE: VITAL SIGNS: Within normal limits, afebrile. Alert and oriented times three. normal work of breathing Heart rate: Regular rate Abdomen: Fundus firm at U-2. Soft, NTTP. Pfannensteil incision is covered with pressure dressing without strikethrough. Pt declines removal this AM, states she wants to wait until she is ready to shower ASSESSMENT: Ms. Perdomo os a 25yo POD2 s/p RCD at 35+6 for CHTN with PATRICA with SF s/p 24hrs of magnesium that was discontinued on 03/20 at approximately 2200. Delivered a male , currently in NNICU on supplemental O2. Doing well on POD 2 PLAN: 1. S/p magnesium x24 hrs postoperatively 2. IV antihypertensives as indicated. Currently on no PO meds 3. Tylenol and Motrin for pain. Oxycodne for breakthrough 4. Encourage breast feeding. Baby in NNICU 5. contraception undecided. Plans to discuss at visit 6. Routine PP visit in 7d, 2wk, and 6 weeks in clinic. 7. Educated on return precautions and activity limitations VS, I&O, 24H, Fishbone Vital Signs/I&O Vital Signs Date Time Temp Pulse Resp B/P (MAP) Pulse Ox O2 Delivery O2 Flow Rate FiO2 03/21/21 06:00 97.3 78 16 121/62 (81) 100 Room Air 03/19/21 23:47 2.0 I&O- Last 24 Hours up to 6 AM 03/21/21 06:00 Intake Total 2005.6 ml Output Total 4450 ml Balance -2444.4 ml Laboratory Data 24H LABS Laboratory Tests 2 03/20/21 10:20: Nucleated Red Blood Cells % (auto) 0.0, Anion Gap 6L, Glomerular Filtration Rate > 60.0, Calcium Level 7.1L, Total Bilirubin 0.2, Aspartate Amino Transf (AST/SGOT) 20, Alanine Aminotransferase (ALT/SGPT) 12, Alkaline Phosphatase 100, Total Protein 5.8L, Albumin 2.3L, Albumin/Globulin Ratio 0.7L 03/21/21 06:53: Nucleated Red Blood Cells % (auto) 0.0 CBC/BMP Laboratory Tests 03/20/21 10:20 03/21/21 06:53 IRAIDA ZULETA M.D. Mar 21, 2021 08:09
[2021-03-22 02:00] VITALS: BP 112/58
[2021-03-22] MEDS: IBUPROFEN 800 MG TAB PO SCH (05:52)
[2021-03-22] MEDS: ACETAMINOPHEN 500 MG TAB PO SCH (05:52)
[2021-03-22 06:00] VITALS: BP 109/68
[2021-03-22] MEDS ORDERED: OXYC-517 PO (09:07)
[2021-03-22] MEDS ORDERED: IBUP80TA PO (09:07)
--- NOTE | 2021-03-22 09:53 | DS.PDOC ---
Discharge Summary General Date of Admission Mar 19, 2021 at 16:45 Date of Discharge Mar 22, 2021 Discharge Summary HOSPITAL COURSE: Ms. Perdomo is a 25 yo G2 now P2 who underwent an uncomplicated RLTCS on 19Mar2021 after being admitted for cHTN with superimposed pre eclampsia with severe features. She received 24 hours of IV magnesium for seizure prophylaxis. BP remained stable. Her course was otherwise unremarkable. On her day of discharge she met all appropriate discharge criteria. She was ambulating, voiding, tolerating a regular diet, and had minimal lochia. She had no headaches, RUQ pain, visual changes, or SOB. DISCHARGE MEDICATIONS: Please see below. ALLERGIES: Please see below. PHYSICAL EXAMINATION ON DISCHARGE: VITAL SIGNS: Please see below. GENERAL: AAOX3, NAD ABDOMINAL EXAMINATION: Fundus firm at U-2. No fundal tenderness. Pfannenstiel incision well appearing and covered with steri strips. No erythema, induration, or signs of infection or dehiscence. No tenderness to palpation. EXTREMITIES: No edema PSYCHIATRIC EXAMINATION: Affect appropriate LABORATORY DATA: Please see below. ACTIVITY: Pelvic rest for 6 weeks. No heavy lifting for 6 weeks. DIET: Regular DISCHARGE PLAN: Discharge home or to boarder status. DISPOSITION: Discharge home or to boarder status on 22Mar2021. DISCHARGE INSTRUCTIONS: 1. Nothing in the vagina for 6 weeks 2. No heavy lifting for 6 weeks. ITEMS TO FOLLOWUP ON ON OUTPATIENT: 1. Walk in to [facility] on Tuesday or Tuesday for a blood pressure check. 2. patient support representative meds at [facility]. 3. Schedule a visit for 6 weeks post delivery DISCHARGE CONDITION: Stable. TIME SPENT ON DISCHARGE: Greater than 20 minutes. Sommer Su DO Vital Signs/I&Os Vital Signs Date Time Temp Pulse Resp B/P (MAP) Pulse Ox O2 Delivery O2 Flow Rate FiO2 03/22/21 06:00 97.8 78 16 109/68 (82) 100 Room Air 03/19/21 23:47 2.0 I&O- Last 24 Hours up to 6 AM 03/22/21 06:00 Output Total 1200 ml Balance -1200 ml Discharge Medications Scheduled Ibuprofen (Ibuprofen) 800 Mg Tablet, 800 MG PO Q8H Pnv No.118/Iron Fumarate/FA ( 19 Chewable Tablet) 1 Each Tab.chew, 1 TAB PO DAILY Scheduled PRN Oxycodone HCl (Oxycodone HCl) 5 Mg Tablet, 5 MG PO Q4H PRN for SEVERE PAIN (PS 5-10) Allergies Coded Allergies: No Known Allergies (Unverified , 06/07/18) SOMMER SU DO Mar 22, 2021 09:52
== END 2021-03-22 10:15 | disposition home or self-care (01) | DRG 772 ==
LOC: M LDO 13:38 → M LDI 16:45 → M PED 03-21
PROVIDERS: ADMIT Registered Nurse Maternal Newborn; ATTEND Registered Nurse Maternal Newborn
PROC: 10D00Z1 Extraction of Products of Conception, Low, Open Approach (ICD-10-PCS; principal; 2021-03-19 18:42)
DX: O14.14 Severe pre-eclampsia complicating childbirth (principal); O98.52 Other viral diseases complicating childbirth; Z37.0 Single live birth; Z3A.35 35 weeks gestation of pregnancy; B00.9 Herpesviral infection, unspecified; O34.211 Maternal care for low transverse scar from previous cesarean delivery